=== PATIENT | female | born 1995 | race Caucasian/White ===

== ENCOUNTER 2019-10-04 09:42 | Emergency (ER) | payer BC, MEDICAID, OTHER ==
[~2019-10-04] VITALS: Ht 157.5 cm; Wt 83.0 kg
[2019-10-04 09:45] VITALS: BP 121/85; Ht 157.5 cm; Wt 83.0 kg
== END 2019-10-04 11:08 | disposition home or self-care (01) ==
LOC: ED 09:42
DX: L60.0 Ingrowing nail (principal); Z98.890 Other specified postprocedural states
CPT/HCPCS: J2001

== ENCOUNTER 2020-02-04 06:52 | Emergency (ER) | payer BC, MEDICAID, OTHER, SELFPAY ==
[~2020-02-04] VITALS: Ht 157.5 cm; Wt 83.9 kg
[2020-02-04 06:53] VITALS: BP 129/83; Ht 157.5 cm; Wt 83.9 kg
== END 2020-02-04 07:39 | disposition home or self-care (01) ==
LOC: ED 06:52
DX: U07.1 COVID-19 (principal); B34.9 Viral infection, unspecified
CPT/HCPCS: U0003